=== PATIENT | male | born 1975 | race Caucasian/White ===

== ENCOUNTER 2024-03-02 20:07 | Emergency (ER) | payer SELFPAY ==
[~2024-03-02] VITALS: Ht 177.8 cm; Wt 82.0 kg
[~2024-03-02 20:07] MED LIST: NALO4SPR BOTHNSTRLS
[2024-03-02 20:17] VITALS: TEMP 98.3
[2024-03-02 20:44] VITALS: O2SAT 98
[2024-03-02 20:46] VITALS: BP 120/83; PULSE 75; RESP 19; O2SAT 98
[2024-03-02] MEDS ORDERED: NALO4SPR BOTHNSTRLS (23:43)
== END 2024-03-03 00:28 | disposition home or self-care (01) ==
LOC: ER 20:07
DX: T40.2X1A Poisoning by other opioids, accidental (unintentional), initial encounter (principal); F19.10 Other psychoactive substance abuse, uncomplicated; F17.200 Nicotine dependence, unspecified, uncomplicated; F15.90 Other stimulant use, unspecified, uncomplicated; Y92.89 Other specified places as the place of occurrence of the external cause
CPT/HCPCS: 71045; 99283

== ENCOUNTER 2024-12-15 11:27 | Inpatient (IN) | payer SELFPAY ==
[~2024-12-15] VITALS: Ht 175.3 cm; Wt 84.1 kg
[2024-12-15 12:06] VITALS: O2SAT 99
[2024-12-15] MEDS: PIPERACILLIN/TAZO 3.375G/50ML 50 ML IV ONE (13:02)
[2024-12-15] MEDS: KETOROLAC 15MG/ML VIAL IV ONE (13:03)
[2024-12-15] MEDS: MORPHINE SULFATE 4 MG/ML INJ (FOR IV/IM USE) IV ONE (13:03)
[2024-12-15] MEDS: TETANUS, DIPHTHERIA, PERTUSSIS VAC/PF 0.5ML (>10YR OLD) IM ONE (13:04)
[2024-12-15] MEDS: SODIUM CHLORIDE 0.9% 1,000 ML IV ONE (13:15)
[2024-12-15] MEDS: VANCOMYCIN 1G PREMIX 200 ML IV ONE (13:16)
[2024-12-15 13:21] LABS: HEMATOCRIT. 46.9 % (42.0-52.0); HEMOGLOBIN. 15.5 g/dL (14.0-18.0); MEAN PLATELET VOLUME 9.4 fl (7.4-10.4); PLATELET 306 x1000/uL (130-400); RED BLOOD CELL COUNT 5.65 mill/uL (4.7-6.1); RED CELL DISTRIBUTION WIDTH 14.3 % (11.6-14.6)
[2024-12-15 13:36] LABS: CREATININE 1.0 mg/dL (0.6-1.3)
[2024-12-15 13:37] LABS: UREA NITROGEN BLOOD 8 mg/dL (9-23)
[2024-12-15 13:38] LABS: ASPARTATE AMINOTRANSFERASE 31 IU/L (<34)
[2024-12-15 13:39] LABS: BILIRUBIN DIRECT 0.7 mg/dL (<=3.0); BILIRUBIN TOTAL 2.3 mg/dL (0.1-1.0); PROTEIN TOTAL 8.0 g/dL (6.0-8.3)
[2024-12-15 13:42] LABS: INR 1.0
[2024-12-15 15:40] LABS: BAND% 8.0 % (1.0-6.0); LYMPHOCYTES % MANUAL 9.0 % (20.0-50.0); MONOCYTES % MANUAL 8.0 % (2.0-8.0); NEUTROPHILS % MANUAL 75.0 % (45.0-75.0)
[2024-12-15 15:41] LABS: PLATELET ESTIMATE NORMAL
[2024-12-15 17:15] VITALS: BP 135/75; PULSE 93; RESP 20; TEMP 37.0296
[2024-12-15] MEDS ORDERED: ACETAMINOPHEN 500MG TABLET PO PRN (17:45)
[2024-12-15 20:00] VITALS: BP 121/81; PULSE 104; RESP 18; TEMP 36.4; O2SAT 99
[2024-12-15] MEDS: KETOROLAC 30MG/ML VIAL IV PRN (20:19)
[2024-12-15 21:17] LABS: HEPATITIS C AB NON REACTIVE (Neg) (Negative)
[2024-12-15] MEDS: CEFTRIAXONE 1GM/50ML 50 ML IV SCH (21:50)
[2024-12-15] MEDS ORDERED: LIDOCAINE HCL/EPINEPHRINE 1%-EPI 1:100,000 20ML VIAL INFIL SCH (22:00)
[2024-12-16] VITALS (7 sets, daily range): BP systolic 111–121; BP diastolic 66–76; PULSE 71–100; RESP 17–18; TEMP 35.7–36.7; O2SAT 96–99
[2024-12-16] MEDS: POVIDONE-IODINE 10% TOPICAL SOLN 240ML TOP SCH (09:00)
[2024-12-16] MEDS ORDERED: AMOX1TAB16 MT (16:17)
[2024-12-16] MEDS ORDERED: SULF1TAB48 MT (16:17)
[2024-12-16] MEDS: ACETAMINOPHEN 325MG TABLET PO PRN (18:44)
[2024-12-16 22:22] LABS: BASOPHILS % 0.2 % (0.0-2.0); EOSINOPHILS % 0.4 % (0.0-5.0); HEMATOCRIT. 41.2 % (42.0-52.0); HEMOGLOBIN. 13.5 g/dL (14.0-18.0); LYMPHOCYTES % 5.6 % (20.0-50.0); MEAN PLATELET VOLUME 9.1 fl (7.4-10.4); MONOCYTES % 6.2 % (2.0-8.0); NEUTROPHILS % 87.6 % (40.0-76.0); PLATELET 319 x1000/uL (130-400); RED BLOOD CELL COUNT 4.95 mill/uL (4.7-6.1); RED CELL DISTRIBUTION WIDTH 14.5 % (11.6-14.6)
[2024-12-17] VITALS: BP 118/76; PULSE 77; RESP 17; TEMP 36.6; O2SAT 97
[2024-12-17 04:00] VITALS: BP 125/80; PULSE 88; RESP 17; TEMP 36.7; O2SAT 100
[2024-12-17 08:00] VITALS: BP 121/66; PULSE 69; RESP 14; TEMP 36.7; O2SAT 99
[2024-12-17 12:00] VITALS: BP 113/66; PULSE 76; RESP 17; TEMP 36.8; O2SAT 98
== END 2024-12-17 15:10 | disposition home or self-care (01) | DRG 710 ==
LOC: ER 11:27 → 6WST 15:44 → EDBEDREQTM 15:46 → EDBEDREQSVC 15:46 → EDBEDREQ 15:46 → ENRESERV 16:18 → CANRESERV 16:18 → EDBEDREQSVC 16:37 → ENRESERV 16:49
PROVIDERS: ADMIT Internal Medicine; ATTEND Internal Medicine
PROC: 0JBK0ZZ Excision of Left Hand Subcutaneous Tissue and Fascia, Open Approach (ICD-10-PCS; principal; 2024-12-15)
DX: A41.9 Sepsis, unspecified organism (principal); F17.210 Nicotine dependence, cigarettes, uncomplicated; S61.211A Laceration without foreign body of left index finger without damage to nail, initial encounter; L02.512 Cutaneous abscess of left hand; L03.114 Cellulitis of left upper limb; V19.88XA Pedal cyclist (driver) (passenger) injured in other specified transport accidents, initial encounter; Y93.89 Activity, other specified; Y92.89 Other specified places as the place of occurrence of the external cause; Y99.8 Other external cause status
CPT/HCPCS: 36415; 71045; 73130; 80048; 80076; 83605; 83735; 84145; 85025; 86705; 86850; 86900; 87070; 87075; 87186; 87340; 90471; 90715; 93005; 96361; 96365; 96375; 96376; 99291; J0696; J1885; J2004; J2270; J2543; J3373; J7030